=== PATIENT | female | born 2000 | race American Indian/Alaskan Native ===

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

== ENCOUNTER 2021-10-28 19:59 | Emergency (ER) | payer OTHER | END 2021-10-28 20:05 | disposition left against medical advice (07) | LOC: ED 19:59 | DX: J02.9 Acute pharyngitis, unspecified (principal); Z53.21 Procedure and treatment not carried out due to patient leaving prior to being seen by health care provider ==

== ENCOUNTER 2021-10-29 14:11 | Emergency (ER) | payer OTHER ==
[2021-10-29 15:31] VITALS: BP 111/65
== END 2021-10-30 10:59 | disposition left against medical advice (07) ==
LOC: ED 14:11
DX: R10.9 Unspecified abdominal pain (principal); J02.9 Acute pharyngitis, unspecified; Z53.21 Procedure and treatment not carried out due to patient leaving prior to being seen by health care provider
CPT/HCPCS: 87116; 87430